=== PATIENT | female | born 1940 | race Caucasian/White ===

== ENCOUNTER 2016-07-29 18:12 | Emergency (ER) | payer OTHER ==
[~2016-07-29] VITALS: Ht 167.6 cm; Wt 68.0 kg
--- NOTE | 2016-07-29 18:47 | PHYS DOC ---
Past Medical History Past Medical History: Anxiety, Dementia, Depression, DVT Past Surgical History: Other Additional Past Surgical Histo: unknown Alcohol Use: Rarely Drug Use: None Adult General Chief Complaint Chief Complaint: WRIST PAIN HPI HPI Patient is a 76 year old female who presents with right wrist pain. Patient states she awoke yesterday with warmth and pain in her right wrist. Patient denies any trauma to the wrist in the last 3-4 days. Patient denies any systemic symptoms such as fevers or chills. Patient denies any history of gout. She denies numbness or tingling in her fingers. Review of Systems Review of Systems Constitutional: Denies fever or chills Eyes: Denies change in visual acuity, redness, or eye pain HENT: Denies nasal congestion or sore throat Respiratory: Denies cough or shortness of breath Cardiovascular: No S pain or palpitations GI: Denies abdominal pain, nausea, vomiting, bloody stools or diarrhea : Denies dysuria or hematuria Musculoskeletal: Denies back pain. Positive right wrist pain with palpation. Integument: Denies rash or skin lesions. Positive erythema and right dorsal and volar wrist. Neurologic: Denies headache, focal weakness or sensory changes Endocrine: Denies polyuria or polydipsia Allergies Allergies Allergies Coded Allergies Type Severity Reaction Last Updated Verified Penicillins Allergy Intermediate 07/29/16 Yes Physical Exam Physical Exam Constitutional: Well developed, well nourished, no acute distress, non-toxic appearance. HENT: Normocephalic, atraumatic, , oropharynx moist, no oral exudates, nose normal. Eyes: PERRLA, EOMI, conjunctiva normal, no discharge. Neck: Normal range of motion, no tenderness, supple, no stridor. Cardiovascular:Heart rate regular rhythm, no murmur Lungs & Thorax: Bilateral breath sounds clear to auscultation Skin: Warm, dry, right wrist dorsal and volar erythema. Back: No tenderness, no CVA tenderness. Extremities: Right wrist: Dorsal and volar erythema and warmth to touch mild edema. No snuffbox tenderness. Moderate pain with active range of motion. Capillary refill and sensation in the fingers is normal. Grass slightly weakened due to pain. Does not exacerbated by pronation and supination. Neurologic: Alert and oriented X 3, normal motor function, normal sensory function, no focal deficits noted. Psychologic: Affect normal, judgement normal, mood normal. Current Patient Data Vital Signs Vital Signs Date Time Temp Pulse Resp B/P Pulse Ox O2 Delivery O2 Flow Rate FiO2 07/29/16 20:22 82 29 96/67 92 Room Air 07/29/16 18:26 100.6 100.6 EKG EKG [] Radiology/Procedures Radiology/Procedures [] Impressions: Right wrist x-ray read by myself: No fracture. Osteopenia Course & Med Decision Making Course & Med Decision Making Pertinent Labs and Imaging studies reviewed. (See chart for details) [] Dragon Disclaimer Dragon Disclaimer This electronic medical record was generated, in whole or in part, using a voice recognition dictation system. Departure Departure Impression: Primary Impression: Cellulitis of wrist Disposition: 01 HOME, SELF-CARE Condition: STABLE Patient Instructions: Cellulitis Scripts Sulfamethoxazole/Trimethoprim (Bactrim Ds Tablet)1 Each Tablet1 Tab PO BID #20 TAB Prov:DESMOND BUENO MD 07/29/16 DESMOND BUENO MD Jul 29, 2016 18:47
[2016-07-29] MEDS ORDERED: SULF1TAB24 PO (19:53)
[2016-07-29 20:22] VITALS: BP 96/67
--- NOTE | 2016-07-30 13:06 | RAD ---
Three-view right wrist radiographs 07/29/2016 Clinical history: Right wrist pain, redness and swelling. PA, lateral and oblique digital radiographs of the right wrist were obtained. There is diffuse osteopenia of the visualized bony structures. No acute fracture or dislocation of the right wrist is seen. Widening of the space between the scaphoid and lunate bone is seen suggesting scapholunate ligament disruption. Mild degenerative changes are seen involving the radiocarpal joint. Moderate to severe degenerative changes are seen involving the mid carpal joint. Severe degenerative changes are seen involving the first carpometacarpal joint. Chondrocalcinosis is seen in the region of the TFCC. Impression: Degenerative changes are seen involving the right wrist as outlined above. No acute osseous abnormality is seen.
== END 2016-07-29 20:40 | disposition home or self-care (01) ==
LOC: ER 18:12
DX: L03.113 Cellulitis of right upper limb (principal); F32.9 Major depressive disorder, single episode, unspecified; F03.90 Unspecified dementia, unspecified severity, without behavioral disturbance, psychotic disturbance, mood disturbance, and anxiety; F41.9 Anxiety disorder, unspecified; Z88.0 Allergy status to penicillin; Z86.718 Personal history of other venous thrombosis and embolism
CPT/HCPCS: 73110; 99284